=== PATIENT | female | born 1945 | race Caucasian/White ===

== ENCOUNTER → 2017-04-08 | Outpatient (CLI) | payer OTHER | LOC: CIMAGING 14:29 | PROVIDERS: ATTEND Physician Assistant | DX: R19.09 Other intra-abdominal and pelvic swelling, mass and lump (principal); Z95.0 Presence of cardiac pacemaker | CPT/HCPCS: 72192-PO ==

== ENCOUNTER → 2017-05-11 | Outpatient (CLI) | payer OTHER | LOC: CIMAGING 10:18 | PROVIDERS: ATTEND Internal Medicine Hematology & Oncology | DX: N89.8 Other specified noninflammatory disorders of vagina (principal); N83.9 Noninflammatory disorder of ovary, fallopian tube and broad ligament, unspecified | CPT/HCPCS: 76856-PO ==

== ENCOUNTER → 2017-05-25 | Outpatient (CLI) | payer OTHER | LOC: FIMAGING 07:35 | PROVIDERS: ATTEND Internal Medicine Hematology & Oncology | DX: Z12.31 Encounter for screening mammogram for malignant neoplasm of breast (principal); Z85.3 Personal history of malignant neoplasm of breast | CPT/HCPCS: G0202 ==

== ENCOUNTER → 2018-04-10 | Outpatient (CLI) | payer OTHER | LOC: FIMAGING 09:37 | PROVIDERS: ATTEND Family Medicine | DX: Z13.820 Encounter for screening for osteoporosis (principal); M85.89 Other specified disorders of bone density and structure, multiple sites; Z78.0 Asymptomatic menopausal state; Z92.29 Personal history of other drug therapy ==

== ENCOUNTER → 2018-07-04 | Outpatient (CLI) | payer OTHER | LOC: FIMAGING 14:19 | PROVIDERS: ATTEND Internal Medicine Hematology & Oncology | DX: N63.11 Unspecified lump in the right breast, upper outer quadrant (principal) ==

== ENCOUNTER → 2018-11-23 | Outpatient (CLI) | payer OTHER | LOC: FIMAGING 15:42 | PROVIDERS: ATTEND Orthopaedic Surgery | DX: M17.0 Bilateral primary osteoarthritis of knee (principal); M94.261 Chondromalacia, right knee; M25.461 Effusion, right knee; M25.462 Effusion, left knee ==

== ENCOUNTER 2018-12-18 11:15 | Inpatient (IN) | payer OTHER ==
[2018-11-29 12:35] LABS: PLATELET COUNT 281 10^3/uL (150-400)
--- NOTE | 2018-11-29 18:30 | CPEKG ---
Test Reason : OPEN Blood Pressure : / mmHG Vent. Rate : 068 BPM Atrial Rate : 068 BPM P-R Int : 164 ms QRS Dur : 084 ms QT Int : 408 ms P-R-T Axes : 046 -16 037 degrees QTc Int : 434 ms SINUS RHYTHM Confirmed by Kevin Diaz ([id number]) on 11/29/2018 6:29:39 PM Referred By: Maged Grant Confirmed By:Kevin Diaz
--- NOTE | 2018-12-18 14:26 | GHP ---
[f rep st] PREOP HISTORY AND PHYSICAL DATE OF ADMISSION: 12/19/2018 DATE OF PLANNED PROCEDURE: 12/19/2018 ADMISSION DIAGNOSIS: Osteoarthritis of bilateral knees. PLANNED PROCEDURE: Bilateral total knee arthroplasties with Christofer assist. HPI: The patient is a very pleasant 73-year-old female who has had ongoing bilateral knee pain and failed conservative management including viscosupplementation injections, cortisone injections, bracing, physical therapy , activity modification, and oral medicines. Decision has been made to proceed with a total arthroplasty in both knees. PRIOR MEDICAL HISTORY: Hypertension, osteopenia, heart disease with pacemaker placement. SURGICAL HISTORY: Neck fusion, 2009; open reduction and internal fixation, right ankle; pacemaker placement, 2005; hysterectomy,;and tonsillectomy, 1949. MEDICATIONS: Alendronate 70 mg, amlodipine 5 mg, clonidine 0.1 mg, lisinopril/ hydrochlorothiazide 20/25, meloxicam 15 mg, and paroxetine 20 mg. ALLERGIES: Sulfa antibiotics give her rash. 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 Occasional alcohol use. Never smoker. [place]. . REVIEW OF SYSTEMS: No shortness of breath or chest pain. Otherwise, review of systems unremarkable. PHYSICAL EXAM: VITAL SIGNS: She is 5 feet 1 inch tall and weighs 153 pounds. Blood pressure is 133/76, pulse is 89, respiratory rate 16 on room air. GENERAL : Alert and oriented x3. HEENT: Normocephalic, atraumatic. Extraocular muscles intact. NECK: Supple. There is no lymphadenopathy. No JVD. CHEST: Clear to auscultation. CARDIOVASCULAR: Regular rate and rhythm. ABDOMEN: Soft, nontender, nondistended. EXTREMITIES: Exam focusing on both knees, straight alignment. No effusion. There is full extension. Flexes to 120 degrees. Knees are stable to varus and valgus stress testing. 1+ Kasey with firm endpoints. Negative posterior drawers. Tender along the medial joint lines as well as inferior poles of the patella. Calves are soft. 2+ dorsalis pedis posterior tibial pulses. 5/5 ankle dorsiflexion, plantar flexion strength. X-rays show severe patellofemoral arthritis, moderate medial and lateral compartment arthritis. ASSESSMENT: Ffowliib-ov-dglyzd tricompartmental osteoarthritis, bilateral knees. PLAN: After a long discussion, Jazmín and I have decided to proceed with bilateral total knee arthroplasties with Christofer assist. She understands she will most likely need rehabilitation postoperatively to improve her independence prior to being discharged home. We also talked about the possibility of stiffness, ongoing pain, need for additional surgery in the future. Risks of infection and blood clots were also discussed. She understands these risks, wishes to proceed. Plan on surgery Tuesday at the hospital. /[id number]/MODL MTDD
[2018-12-19] MEDS ORDERED: THROMBIN (BOVINE) 5,000 UNIT VIAL TP ONE (09:13)
[2018-12-19] MEDS ORDERED: CALCIUM CHLORIDE 1 GM/10 ML INJ ONE (09:14)
[2018-12-19] MEDS ORDERED: ceFAZolin 1 GM/5 ML SYR ONE (09:14)
[2018-12-19] MEDS ORDERED: LR 1,000 ML IV ONE (09:20)
[2018-12-19] MEDS ORDERED: ceFAZolin 2 GM/DEXTROSE 100 ML IV ONE (09:20)
--- NOTE | 2018-12-19 12:10 | PDHPUP ---
History & Physical Update H&P update statement: This history and physical update is based on an assessment of the patient which was completed after admission or registration (within 24 hours), but prior to the surgery/procedure. H&P update: H&P reviewed & patient examined, no change in patient's condition since H&P completed
--- NOTE | 2018-12-19 12:15 | PDANEPAE ---
ANE History of Present Illness OA for bilat TKA ANE Past Medical History - Cardiovascular History Hx Hypertension: Yes Hx Arrhythmias: Yes Hx Chest Pain: No Hx Coronary Artery / Peripheral Vascular Disease: No Hx CHF / Valvular Disease: No Hx Palpitations: No Cardiovascular History Comment: SSS. hx of syncope prior to pacemaker being placed. pacemaker. followed by jax at [facility] - Pulmonary History Hx COPD: No Hx Asthma/Reactive Airway Disease: No Hx Recent Upper Respiratory Infection: No Hx Oxygen in Use at Home: No Hx Sleep Apnea: No Sleep Apnea Screening Result - Last Documented: Negative - Neurologic History Hx Cerebrovascular Accident: No Hx Seizures: No Hx Dementia: No - Endocrine History Hx Diabetes: No - Renal History Hx Renal Disorders: No - Liver History Hx Hepatic Disorders: No - Neurological & Psychiatric Hx Hx Neurological and Psychiatric Disorders: Yes Neurological / Psychiatric History Comment: mild anxiety and depression - Cancer History Hx Cancer: Yes Cancer History Comment: breast ca- lumpectomy to left breast - Congenital Disorder History Hx Congenital Disorders: No - GI History Hx Gastrointestinal Disorders: No - Other Health History Other Health History: reading glasses. actinic keratosis - Chronic Pain History Chronic Pain: Yes (bilateral knees, lower back/ tailbone pain) - Surgical History Prior Surgeries: 06/08/13 left axillary, sent node excision and left partial mastectomy with Johs. 01/01/10 c4,5,6 anterior discectomy and c3-7 posterior decompression and fusion with VVC. tonsillecomy. hysterectomy. ankle repair- left. 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: [employer] Pacemaker Model: [id number] Pacemaker Mode: AAIR-DDDR Pacemaker Set Rate: 60 Date Pacemaker Last Checked: 11/02/18 ANE Patient History - Allergies Allergies/Adverse Reactions: Sulfa (Sulfonamide Antibiotics) Allergy (Verified 11/24/18 15:43) Rash - Home Medications Home Medications: Acetaminophen [Tylenol 325mg (*)] 325 mg PO DAILY PRN 11/21/18 [Last Taken 12/18] Alendronate Sodium [Fosamax 70 MG (*)] 70 mg PO SA@0700 11/21/18 [Last Taken ] Lisinopril/Hydrochlorothiazide [Zestoretic 20-25 mg Tablet] 1 each PO DAILY [Last Taken 12/18/18] Meloxicam 15 mg PO DAILY 11/21/18 [Last Taken 12/12/18] Multivitamins [Multivitamin (*)] 1 each PO DAILY 11/21/18 [Last Taken 12/12/18] PARoxetine HCL [Paxil 20mg (*)] 20 mg PO DAILY 11/21/18 [Last Taken 12/19/18] Phentermine HCl 15 mg PO DAILY 11/21/18 [Last Taken 12/15/18] Topiramate [Topamax 25MG (*)] 25 mg PO BID 11/21/18 [Last Taken 12/16/18] clonIDINE [Catapres (*)] 0.1 mg PO HS 11/21/18 [Last Taken 12/16/18] traZODone [traZODONE 50MG (*)] 25 mg PO HS 11/23/18 [Last Taken 12/19/18] - NPO status NPO Since - Liquids (Date): 12/19/18 NPO Since - Liquids (Time): 08:00 NPO Since - Solids (Date): 12/18/18 NPO Since - Solids (Time): 19:30 - Anes Hx Anes Hx: no prior problems - Smoking Hx Smoking Status: Never smoked - Family Anes Hx Family Hx Anesthesia Complications: none ANE Labs/Vital Signs - Labs Result Diagrams: 11/29/18 12:06 11/29/18 12:06 - Vital Signs Blood Pressure: 140/72 Heart Rate: 76 Respiratory Rate: 18 O2 Sat (%): 96 Height: 157.48 cm Weight: 70.307 kg ANE Physical Exam - Airway Neck exam: FROM Mallampati Score: Class 2 Mouth exam: normal dental/mouth exam - Pulmonary Pulmonary: no respiratory distress - Cardiovascular Cardiovascular: regular rate and rhythym - ASA Status ASA Status: III ANE Anesthesia Plan Anesthesia Plan: MAC, spinal Regional Anesthesia: adductor canal FNB
[2018-12-19] MEDS ORDERED: MIDAZOLAM 2 MG/2 ML VIAL IVP ONE (12:16)
[2018-12-19] MEDS ORDERED: MIDAZOLAM 2 MG/2 ML VIAL ONE (12:19)
[2018-12-19] MEDS ORDERED: PROPOFOL 200 MG/20 ML VIAL ONE (12:32)
[2018-12-19] MEDS ORDERED: PROPOFOL/EMULSION 500 MG/50 ML BOTTLE IV ONE ×3 (12:34→15:15)
[2018-12-19] MEDS ORDERED: LIDOCAINE 2% 5 ML SDV ONE (12:34)
[2018-12-19] MEDS ORDERED: ONDANSETRON 4 MG/2 ML VIAL ONE (13:04)
[2018-12-19] MEDS ORDERED: BUPIVACAINE/EPI 0.5% 30 ML SDV ONE (13:10)
[2018-12-19] MEDS ORDERED: PHENYLEPHRINE HCL 100 MCG/ML SYR ONE (13:16)
[2018-12-19] MEDS ORDERED: NALOXONE HCL 0.4 MG/ML INJ IVP PRN (15:19)
[2018-12-19] MEDS ORDERED: fentaNYL 100 MCG/2 ML INJ IVP PRN (15:19)
[2018-12-19] MEDS ORDERED: HYDROmorphONE/DILAUDID 1 MG/ML INJ IVP PRN (15:19)
[2018-12-19] MEDS ORDERED: ONDANSETRON 4 MG/2 ML VIAL IVP PRN ×2 (15:19→16:22)
[2018-12-19] MEDS ORDERED: DIPHENOXYLATE/ATROPINE LOMOTIL 1 TAB PO PRN (16:22)
[2018-12-19] MEDS ORDERED: BISACODYL 10 MG SUPP PR PRN (16:22)
[2018-12-19] MEDS ORDERED: LACTULOSE 20 GM/30 ML UDCUP PO PRN (16:22)
[2018-12-19] MEDS ORDERED: PROMETHAZINE HCL 25 MG/ML INJ IVP PRN (16:22)
[2018-12-19] MEDS ORDERED: TEMAZEPAM 15 MG CAP PO PRN (16:22)
[2018-12-19] MEDS ORDERED: ONDANSETRON DISINTEGRATING 4 MG TAB PO PRN (16:22)
[2018-12-19] MEDS ORDERED: diphenhydrAMINE 25 MG CAP PO PRN (16:22)
[2018-12-19] MEDS ORDERED: POLYETHYLENE GLYCOL 3350 17 GM PKT PO PRN (16:22)
[2018-12-19] MEDS ORDERED: PROMETHAZINE HCL 25 MG SUPPR PR PRN (16:22)
[2018-12-19] MEDS ORDERED: MAGNESIUM HYDROXIDE 30 ML UDCUP PO PRN (16:22)
--- NOTE | 2018-12-19 16:22 | POSTANESTH ---
Post Anesthetic Evaluation Cardiovascular Status: Similar to Pre-Op Cond Respiratory Status: Similar to Pre-op Cond. Level of Consciousness/Mental Status: Alert and Oriented Pain Control: Adequate, Prn Tx Ordered Nausea/Vomiting Control: Adequate, Prn Tx Ordered Complications Possibly Related to Anesthesia: None Noted (Bilat Adductor Canal blocks done in PACU. No complications noted.)
--- NOTE | 2018-12-19 16:28 | POSTOPPROG ---
Post Op Note Date of Operation: 12/19/18 Surgeon: Maged Grant Felt Dyeing Machine Tender: melvin Hager Anesthesiologist: Misa Anesthesia: Spinal Pre-op Diagnosis: OA bilat knees Post-op Diagnosis: same Procedure: Bilat TKA Findings: severe tricompartment OA bilat Inf/Abcess present in the surg proc area at time of surgery?: No EBL: 50-100 Complications: none Bowel Protocol: Yes Clean Closure Performed: Yes
[2018-12-19] MEDS ORDERED: MEPERIDINE 25 MG/0.5 ML AMP ONE (16:35)
[2018-12-19] MEDS ORDERED: MEPERIDINE 25 MG/ML INJ IVP PRN (16:37)
[2018-12-19] MEDS ORDERED: MEPERIDINE 25 MG/0.5 ML AMP IVP PRN (16:38)
--- NOTE | 2018-12-19 17:05 | PDMN ---
Medical Necessity Medical necessity: Pt meets IP criteria per & JUMA S-700; est los >2 mn s/p bilateral TKA; hx heart disease, htn; per H&P 7 order 12/19/18
[2018-12-19] MEDS: KETOROLAC 15 MG/1 ML SDV IVP SCH ×2 (18:09→23:59)
[2018-12-19] MEDS: CYCLOBENZAPRINE 10 MG TAB PO PRN (18:21)
--- NOTE | 2018-12-19 18:46 | GOP ---
[f rep st] OPERATIVE REPORT DATE OF OPERATION: 12/19/2018 SURGEON: Maged Grant MD COUNTRY DIRECTOR: For the left knee, Pepito Ace, LUMP RECEIVER, DEOILING MACHINE OPERATOR; for the right knee, Aquiles Rincon , PAC. ANESTHESIA: Spinal with bilateral adductor canal blocks. ANESTHESIOLOGIST: Dr. yBnum. PREOPERATIVE DIAGNOSIS: Osteoarthritis, bilateral knees. POSTOPERATIVE DIAGNOSIS: Osteoarthritis, bilateral knees. PROCEDURE PERFORMED: Bilateral total knee arthroplasties with Christofer assist. FINDINGS: INDICATIONS: The patient is a 73-year-old female with ongoing worsening bilateral knee pain. She buenrostro s failed conservative management. Decision was made to proceed with bilateral total knee arthroplast ies. DESCRIPTION OF PROCEDURE: After appropriate informed consent was obtained, the patient was taken to the operating room and placed supine on the operating table. Time-out was performed. The patient wa s identified, correct site was identified, matched with x-rays that were available in the room. She received 2 g of Ancef. Following a spinal anesthetic, the patient was positioned on the OR table wit h bilateral lower extremities prepped and draped in usual sterile fashion. We started on the left, e xsanguinated the limb, inflated the tourniquet to 250 mmHg. Made a standard midline incision with a medial parapatellar arthrotomy. The patella was everted and the remaining medial lateral meniscus wa s excised as was the ACL. Fat pad was removed. We placed our 2 pins in the distal medial femur, 2 p ins in the distal tibia. Placed the array on both of those. We then obtained our hip center and the n collected our data points, both on the femur and tibia. We then brought in the Christofer and made our d istal femoral cuts followed by our tibial cut. We then trialed the femur, drilled our lug holes. Ti randa sized to a size 3. We used our keel punch, as well as our 4 hole tibial drill guide. A 9 mm beau y gave us good extension, good medial and lateral stability. Trial implants were removed. We irriga edson the wound. We press-fit the tibia, followed by femur. Snapped a [address]. We then tu rned our attention to the patella and resected about 10 mm of patella off with a freehand technique. Remaining 14 mm thickness. This sized to a size 29. We drilled our lug holes, irrigated that, pres s-fit our patella. Final check showed good tracking of the patella, good extension. Wound was irrig ated a final time. We closed the extensor mechanism with 0 Vicryl. I instilled 5 Acevedo of PRP into the knee and 15 mL of 0.5% Marcaine with epi into the knee. Superficial layers were closed with 2-0 Vicryl. Skin was closed with a subcuticular Quill stitch. We then turned our attention to the right knee. The tourniquet was let down on the left. Limb was exsanguinated. On the right knee, I made a standard midline incision with a medial parapatellar arthrotomy, everted the patella, removed remai mary medial and lateral meniscus, as well as ACL. We put the arrays in the distal femur on the media l side and distal tibia. We obtained our hip center there. Collected our data points on both the fe mur and the tibia, and brought in the [employer] robotic assist and made our distal femoral cuts followed b y our tibial cut. Trialed the femur, as well as the tibia. This sized on a size 3. Used our keel p unch and punched our tibia, as well as used our 4-hole tibial drill guide. We then irrigated the wou nd, press-fit the tibia, followed by femur, snapped a [address]. Again, we turned our atten tion to the patella. Resected 10 mm off the patella leaving 14 mm thickness. This sized to a size 2 9. We drilled our lug holes, irrigated the patella and press-fit our patella. We then irrigated the wound a final time. Closed our extensor mechanism with 0 Vicryl. Another 5 mL of PRP was placed in to the right knee, as well as 10 mL of 0.5% Marcaine. Superficial layers were closed with 2-0 Vicryl and the skin was closed with a 3-0 Quill stitch in a subcuticular fashion. Steri-Strips were applie d to both knees. Sterile dressings. The patient was awakened from anesthesia and taken to the [facility] room in satisfactory condition. There were no immediate intraoperative complications. Both Iker Ace's assistance for the left knee and Ruy Rincon's assistance for the right knee was requir ed. COMPLICATIONS: None. DRAINS: None. TOTAL TOURNIQUET TIME: Eighty-five minutes on the left, 75 minutes on the right, 250 mmHg. IMPLANTS USED: Left knee: A Luis size 4 cruciate-retaining press-fit femur, size 3; press-fit ti randa; 9 mm poly and asymmetric 29 mm press-fit patella. On the right knee, a size 4 cruciate-retainin g femur, size 3 tibia, 9 mm poly and an asymmetric 29 mm patella, press-fit. /[id number]/MODL
[2018-12-19] MEDS: LR 1,000 ML IV SCH (19:55)
[2018-12-19] MEDS ORDERED: NS BOLUS 500 ML IV ONE (20:30)
[2018-12-19] MEDS: ACETAMINOPHEN 325 MG TAB PO SCH (21:34)
[2018-12-19] MEDS: ceFAZolin 2 GM/DEXTROSE 100 ML IV SCH (21:36)
[2018-12-19] MEDS: FAMOTIDINE 20 MG TAB PO SCH (21:37)
[2018-12-19] MEDS: SENNOSIDES/DOCUSATE SODIUM TAB PO SCH (21:38)
[2018-12-19] MEDS: oxyCODONE IR 5 MG TAB PO PRN (21:38)
[2018-12-19] MEDS: TOPIRAMATE 25 MG TAB PO SCH (21:40)
[2018-12-19] MEDS: traZODone 50 MG TAB PO SCH (21:40)
[2018-12-19] MEDS: METHOCARBAMOL 750 MG TAB PO SCH (23:04)
[2018-12-20] MEDS: ceFAZolin 2 GM/DEXTROSE 100 ML IV SCH (05:37)
[2018-12-20] MEDS: KETOROLAC 15 MG/1 ML SDV IVP SCH ×2 (05:37→13:34)
[2018-12-20] MEDS: LR 1,000 ML IV SCH (05:37)
[2018-12-20] MEDS: ACETAMINOPHEN 325 MG TAB PO SCH ×4 (05:38→23:18)
--- NOTE | 2018-12-20 09:00 | SOAPPROG ---
SOAP Progress Note Assessment/Plan: Assessment: s/p bilateral TKA with Christofer assist - POD 1 - performed by Dr. Grant Anemia - expected initially post-op, asymptomatic, continue to monitor Plan: Continue d/c planning - recommending SNF, she is agreeable to this Continue VTE ppx - aspirin 325 mg once daily, SCDs Continue PT/OT efforts - WBAT with assistance until cleared by PT. ROM as tolerated Continue oral pain medication - tylenol, oxycodone, flexeril Subjective: Patient states she is doing well, pain is being controlled by oral pain medication. She is planning on going to rehab, states her has mild dementia and does not feel that he can fully help take care of her. She is want to go to rehab, but unsure of the location at this time. She denies SOB, CP, fever, chills, nausea, numbness, tingling. Objective: Vital Signs Temp Pulse Resp BP Pulse Ox 37.1 C 85 16 112/79 99 12/20/18 08:00 12/20/18 08:00 12/20/18 08:00 12/20/18 08:00 12/20/18 08:00 Laboratory Results 12/20/18 05:26 11/29/18 12:06 12/19/18 12/20/18 12/21/18 05:59 05:59 05:59 Intake Total 3750 Output Total 485 Balance 3265 Patient resting in bed, no acute distress. Her is present in the room. RLE: Wound dressings are clean, dry and intact. Lower leg compartments are soft and nontender. Negative Homans sign. She can actively DF and PF her right foot and great toe against resistance. Grossly NVI distally. LLE:Wound dressings are clean, dry and intact. Lower leg compartments are soft and nontender. Negative Homans sign. She can actively DF and PF her left foot and great toe against resistance. Grossly NVI distally. ICD10 Worksheet Patient Problems: Problems Problem Status Onset Osteoarthritis of knees, bilateral Acute
[2018-12-20] MEDS: FAMOTIDINE 20 MG TAB PO SCH ×2 (09:08→21:17)
[2018-12-20] MEDS: oxyCODONE IR 5 MG TAB PO PRN ×3 (09:08→21:18)
[2018-12-20] MEDS: ASPIRIN 325 MG TAB PO SCH (09:08)
[2018-12-20] MEDS: METHOCARBAMOL 750 MG TAB PO SCH ×3 (09:08→21:17)
[2018-12-20] MEDS: LISINOPRIL/HCTZ 10/12.5 MG 1 EA TAB PO SCH (09:08)
[2018-12-20] MEDS: SENNOSIDES/DOCUSATE SODIUM TAB PO SCH ×2 (09:09→21:18)
[2018-12-20] MEDS: PHENTERMINE HCL 15 MG PO SCH (09:35)
[2018-12-20] MEDS: TOPIRAMATE 25 MG TAB PO SCH ×2 (13:35→21:19)
[2018-12-20] MEDS: PARoxetine HCL 20 MG TAB PO SCH (13:35)
--- NOTE | 2018-12-20 14:38 | ASMTCMCOM ---
CM Note CM Note Notes: Pt had planned bilat total knee. Pt resides with who has mild dementia. Pt has a supportive dghtr local. PT/OT rec inpatient rehab today. Rehab consult order is in. Pt preferred d/c plan is the [facility] inpatient rehab. D/c plan of care: [facility] inpatient rehab to eval Date Signed: 12/20/2018 02:38 PM Electronically Signed By:JOHANNA Gomez
[2018-12-20] MEDS: CYCLOBENZAPRINE 10 MG TAB PO PRN (18:28)
[2018-12-20] MEDS: traZODone 50 MG TAB PO SCH (21:19)
[2018-12-21] MEDS: oxyCODONE IR 5 MG TAB PO PRN ×3 (03:48→21:29)
[2018-12-21] MEDS: ACETAMINOPHEN 325 MG TAB PO SCH ×4 (03:49→21:29)
[2018-12-21] MEDS: TOPIRAMATE 25 MG TAB PO SCH ×2 (09:20→21:28)
[2018-12-21] MEDS: PARoxetine HCL 20 MG TAB PO SCH (09:20)
[2018-12-21] MEDS: FAMOTIDINE 20 MG TAB PO SCH ×2 (09:20→21:29)
[2018-12-21] MEDS: ASPIRIN 325 MG TAB PO SCH (09:22)
[2018-12-21] MEDS: SENNOSIDES/DOCUSATE SODIUM TAB PO SCH ×2 (09:22→21:29)
[2018-12-21] MEDS: METHOCARBAMOL 750 MG TAB PO SCH ×3 (09:22→21:28)
[2018-12-21] MEDS: LISINOPRIL/HCTZ 10/12.5 MG 1 EA TAB PO SCH (09:23)
--- NOTE | 2018-12-21 10:01 | SOAPPROG ---
SOAP Progress Note Assessment/Plan: Assessment: s/p bilateral TKA with Christofer assist - POD 2 - performed by Dr. Grant Anemia - expected initially post-op, asymptomatic, continue to monitor. Repeat H &H this afternoon, if below 7 then transfuse Plan: Continue d/c planning - PT/OTrecommending rehab, she is agreeable to this. Awaiting inpatient rehab consultation/evaluation Continue VTE ppx - aspirin 325 mg once daily, SCDs Continue PT/OT efforts - WBAT with assistance until cleared by PT. ROM as tolerated Continue oral pain medication - tylenol, oxycodone, flexeril Subjective: Patient states her knees are painful and she has had some spasms in the right knee and thigh. She is still agreeable to rehab. She denies SOB, CP, fever, chills, dizziness, lightheadedness. Objective: Vital Signs Temp Pulse Resp BP Pulse Ox 36.6 C 84 16 116/48 L 90 L 12/21/18 07:32 12/21/18 07:32 12/21/18 07:32 12/21/18 07:32 12/21/18 07:32 Laboratory Results 12/21/18 05:40 11/29/18 12:06 12/20/18 12/21/18 12/22/18 05:59 05:59 05:59 Intake Total 3750 700 100 Output Total 485 700 200 Balance 3265 0 -100 Patient sitting in her chair, she appears drowsy. Her is present in the room. RLE: Wound dressings are clean, dry and intact. Lower leg compartments are soft and nontender. Negative Homans sign bilaterally. She can actively DF and PF her right foot and great toe against resistance. Grossly NVI distally. LLE: Wound dressings are clean, dry and intact. Lower leg compartments are soft and nontender. Negative Homans sign bilaterally. She can actively DF and PF her left foot and great toe against resistance. Grossly NVI distally ICD10 Worksheet Patient Problems: Problems Problem Status Onset Chronic Disease Mgmt/Transitional Care Acute Osteoarthritis of knees, bilateral Acute
[2018-12-21] MEDS: PHENTERMINE HCL 15 MG PO SCH (10:57)
--- NOTE | 2018-12-21 14:57 | ASMTCMCOM ---
CM Note CM Note Notes: The [facility] inpatient acute rehab will not have bed availability for pt at time of d/c. This CM met with pt and Martin to discuss all d/c options. Pt does not want to explore other inpatient acute rehabs because they are too far for Martin to drive to visit her. Pt chooses [facility]. Referral sent in [facility] and [facility] can accept pt. D/c plan of care: [facility] Date Signed: 12/21/2018 02:56 PM Electronically Signed By:JOHANNA Gomez
[2018-12-21] MEDS: traZODone 50 MG TAB PO SCH (21:29)
[2018-12-22] MEDS: ACETAMINOPHEN 325 MG TAB PO SCH ×2 (03:40→11:32)
[2018-12-22 07:24] VITALS: BP 133/61
[2018-12-22] MEDS: LISINOPRIL/HCTZ 10/12.5 MG 1 EA TAB PO SCH (08:22)
[2018-12-22] MEDS: ASPIRIN 325 MG TAB PO SCH (08:23)
[2018-12-22] MEDS: FAMOTIDINE 20 MG TAB PO SCH (08:23)
[2018-12-22] MEDS: METHOCARBAMOL 750 MG TAB PO SCH (08:23)
[2018-12-22] MEDS: TOPIRAMATE 25 MG TAB PO SCH (08:23)
[2018-12-22] MEDS: PARoxetine HCL 20 MG TAB PO SCH (08:23)
[2018-12-22] MEDS: SENNOSIDES/DOCUSATE SODIUM TAB PO SCH (08:23)
--- NOTE | 2018-12-22 08:32 | SOAPPROG ---
SOAP Progress Note Assessment/Plan: Assessment: s/p bilateral TKA with Christofer assist - POD 3 - performed by Dr. Grant Anemia - expected initially post-op, asymptomatic, continue to monitor. Most recent H&H 7.7/23.3 Right lower extremity spasms/cramps Plan: Continue d/c planning - PT/OT recommending rehab, she is agreeable to this. Accepted to [facility] Continue VTE ppx - aspirin 325 mg once daily, SCDs Continue PT/OT efforts - WBAT with assistance until cleared by PT. ROM as tolerated Continue oral pain medication - tylenol, oxycodone, flexeril, robaxin. Her biggest complaint at this time is right thigh/knee spasms Subjective: Patient states she is feeling ok, but the spasms in her right knee/thigh are the most bothersome. Reports Robaxin does help. She feels well enough to go to [facility] today. She denies SOB, CP, fever, chills, nausea, numbness, tingling. Objective: Vital Signs Temp Pulse Resp BP Pulse Ox 36.2 C 78 16 133/61 H 98 12/22/18 07:22 12/22/18 07:22 12/22/18 07:22 12/22/18 08:22 12/22/18 07:22 Laboratory Results 12/22/18 08:10 11/29/18 12:06 12/21/18 12/22/18 12/23/18 05:59 05:59 05:59 Intake Total 700 1200 Output Total 700 600 Balance 0 600 Patient sitting in her chair, complains of feeling cold. She has multiple blankets on. RLE: Wound dressings are clean, dry and intact. Diffuse tenderness about the knee and mid-distal thigh. Lower leg compartments are soft and nontender. She can actively DF and PF her right foot and great toe against resistance. Grossly NVI distally. LLE: Wound dressings are clean, dry and intact. Diffuse tenderness about the knee. Lower leg compartments are soft and nontender. She can actively DF and PF her left foot and great toe against resistance. Grossly NVI distally. ICD10 Worksheet Patient Problems: Problems Problem Status Onset Chronic Disease Mgmt/Transitional Care Acute Osteoarthritis of knees, bilateral Acute
--- NOTE | 2018-12-22 08:39 | PDDCSUM ---
Discharge Summary Discharge Summary: ADMISSION DIAGNOSIS: Bilateral knee severe degenerative arthritis DISCHARGE DIAGNOSIS: Bilateral knee severe degenerative arthritis OPERATION PERFORMED: December 18, 2018, Bilateral total knee arthroplasty, Christofer robot assisted POSTOPERATIVE COMPLICATIONS: None CONDITION ON DISCHARGE: Improved HPI: The patient is a 73 year old female who has end-stage arthritis of her right and left knee. Clinical and radiographic features are consistent with this. Patient has failed attempts at conservative management, therefore, recommended operative bilateral knee replacement. DESCRIPTION OF HOSPITAL COURSE: The patient was admitted to the hospital on the morning of surgery and underwent bilateral total knee arthroplasties, Christofer robot assisted. Postoperatively, patient was treated with multimodal DVT prophylaxis, including aspirin 325 mg once per day, SCDs and JENNA hose. Patient was seen by PT and made good progress with ambulation and stairs. Her most recent H&H was 7.7/23.3. Patient was able to void spontaneously. Patient has been accepted to [facility]. Her has mild dementia and he is unable to care for the patient on his own during her initial recovery period. At the time of discharge, patient was afebrile, wounds were clean and dry. Patient is walking with a walker. DISPOSITION: The patient is discharged to [facility]. Patient may progress to full weightbearing on the right and left lower extremity as tolerated. She will continue to take aspirin 325 mg once daily until she is 2 weeks post-op. Patient has prescription for oxycodone for pain control, Flexeril prn and scheduled robaxin for muscle spasms/cramps. The patient will be seen by Dr. Lau office in approximately 2 weeks. If there are any problems, patient is to call Dr. Lau office.
--- NOTE | 2018-12-22 09:21 | PDIAF ---
- Diagnosis Diagnosis: Bilateral knee osteoarthritis Code Status: Full Code - Medication Management Discharge Medications: electronically signed and located in the Home Medication List. - Orders Services needed: Physical Therapy, Occupational Therapy Diet Recommendation: no restrictions on diet Diet Texture: Regular Texture Diet Additional Instructions: Weightbear as tolerated on right and left lower extremities. Begin PT and home exercises for ROM, gait training, strengthening. Keep wound dressings in place x 7 days. Continue JENNA hose x 10 days. Aspirin 325 mg once daily x 2 weeks. Hold Fosamax for 6 weeks. Follow up with Dr. Grant in 14 days for repeat evaluation and wound check. - Follow Up Care Current Providers and Referrals: Maged Grant MD [Medical Doctor] - follow up in 2 weeks LIZ NORRIS [Primary Care Provider] -
--- NOTE | 2018-12-22 09:55 | ASMTLACE ---
ELINE Length of stay for Answers: 3 days current admission Acuity / Level of Answers: Yes Care: Did the patient have an inpatient admission? Comorbidities - select Answers: Opioid dependence all that apply / Chronic pain Other Notes: HTN # of Emergency department Answers: 0 visits in the last 6 months Social determinants Answers: Mental health diagnosis (anxiety, depression, pers onality disorders, etc.) Score: 14 Date Signed: 12/22/2018 09:54 AM Electronically Signed By:JOHANNA Scales
[2018-12-22] MEDS: oxyCODONE IR 5 MG TAB PO PRN (10:03)
[2018-12-22] MEDS: PHENTERMINE HCL 15 MG PO SCH (10:05)
--- NOTE | 2018-12-22 11:58 | ASDISCHSUM ---
Discharge Information Plan Status:SNF Medically Cleared to Leave:12/22/2018 Discharge Date:12/22/2018 11:21 AM D/C Disposition:[facility] Facility ADT D/C Disposition:[facility] Facility Projected Discharge Date:12/22/2018 11:00 AM Transportation at D/C:Wheelchair Van Discharge Delay Reason: Follow-Up Date:12/22/2018 11:00 AM Discharge Slot: Final Diagnosis: Placement Information [facility] Type:[facility] Referral ID:[id number] Provider Name: Address 1: Phone Number: Address 2: Fax Number: City: Selection Factors: State: Referral Type:*Fdc/SNF Referral ID:[id number] Provider Name:[facility] Address 1:[address] [place] [address] Address 2: City:[place] Selection Factors: State:[place] Patient Contact Information Contact Name:JOB Relationship: Address:[address] City:[place] Alternate Phone: [facility]/Zip Code:[place] [address] Email: Financial Information Financial Class:Medicare Primary Plan Desc:MEDICARE INPATIENT Primary Plan Number:[id number] Secondary Plan Desc:[facility] Secondary Plan Number:[id number] Assessment Information LACE LACE Length of stay for Answers: 3 days current admission Acuity / Level of Answers: Yes Care: Did the patient have an inpatient admission? Comorbidities - select Answers: Opioid dependence all that apply / Chronic pain Other Notes: HTN # of Emergency department Answers: 0 visits in the last 6 months Social determinants Answers: Mental health diagnosis (anxiety, depression, pers onality disorders, etc.) Score: 14 Date Signed: 12/22/2018 09:54 AM Electronically Signed By:JOHANNA Scales [facility] CM Progress Note CM Note CM Note Notes: Pt had planned bilat total knee. Pt resides with who has mild dementia. Pt has a supportive dgr local. PT/OT rec inpatient rehab today. Rehab consult order is in. Pt preferred d/c plan is the [facility] inpatient rehab. D/c plan of care: [facility] inpatient rehab to eval Date Signed: 12/20/2018 02:38 PM Electronically Signed By:JOHANNA Gomez [facility] CM Progress Note CM Note CM Note Notes: The [facility] inpatient acute rehab will not have bed availability for pt at time of d/c. This CM met with pt and Martin to discuss all d/c options. Pt does not want to explore other inpatient acute rehabs because they are too far for Martin to drive to visit her. Pt chooses [facility]. Referral sent in [facility] and [facility] can accept pt. D/c plan of care: [facility] Date Signed: 12/21/2018 02:56 PM Electronically Signed By:JOHANNA Gomez Case Management Discharge Plan Note Case Management Discharge Discharge Order Complete? Answers: Yes Patient to Obtain Answers: Other Notes: [facility] Medications Transportation Arranged Answers: Other Notes: Ashly Schultz w/c Transport will Pick (Date 12/22/2018 11:00 AM & Time) Faxed Final Orders Answers: Yes Agency/Facility Transfer Answers: Yes Report Printed & Faxed to Receiving Agency Discharge Comments Notes: Pt is discharging to [facility] today. Pickup time changed to 11:00. Transport arranged with Ashly Schultz by Angela/Curtis. D/C order, meds, facility transfer sent via [facility]. Date Signed: 12/22/2018 11:56 AM Electronically Signed By:JOHANNA Scales Intervention Information Intervention Type:*IM-Signed Date of Service:12/22/2018 10:17 AM Patient Type:Inpatient Staff Member:Marisol Mosley Hours: Discipline: Severity: Comment:
== END 2018-12-22 11:21 | DRG 462 ==
LOC: F3N 12-19 09:03
PROVIDERS: ADMIT Orthopaedic Surgery; ATTEND Orthopaedic Surgery
PROC: 8E0Y0CZ Robotic Assisted Procedure of Lower Extremity, Open Approach (ICD-10-PCS; principal; 2018-12-19 11:00)
PROC: 0SRC0JA Replacement of Right Knee Joint with Synthetic Substitute, Uncemented, Open Approach (ICD-10-PCS; principal; 2018-12-19 11:00)
PROC: 0SRD0JA Replacement of Left Knee Joint with Synthetic Substitute, Uncemented, Open Approach (ICD-10-PCS; principal; 2018-12-19 11:00)
DX: M17.0 Bilateral primary osteoarthritis of knee (principal); I10 Essential (primary) hypertension; M85.80 Other specified disorders of bone density and structure, unspecified site; Z95.0 Presence of cardiac pacemaker; F32.9 Major depressive disorder, single episode, unspecified; F41.9 Anxiety disorder, unspecified; Z85.3 Personal history of malignant neoplasm of breast
CPT/HCPCS: 97110-GP; 97116-GP; 97161-GP; 97166-GO; 97530-GO; 97530-GP; 97535-GO; J0690; J1885; J2175; J2250; J2270; J2370; J2405; J2704